=== PATIENT | male | born 1955 | race Caucasian/White ===

== ENCOUNTER 2020-05-24 18:34 | Emergency (ER) | payer BC, OTHER ==
[~2020-05-24] VITALS: Ht 180.3 cm; Wt 120.2 kg
[2020-05-24] MEDS ORDERED: HYDROCODONE/APAP 10MG-325MG TAB PO ONE (18:45)
[2020-05-24 21:19] VITALS: BP 154/86
== END 2020-05-24 20:42 | disposition home or self-care (01) ==
LOC: ER 18:51
DX: S46.911A Strain of unspecified muscle, fascia and tendon at shoulder and upper arm level, right arm, initial encounter (principal); I10 Essential (primary) hypertension; F17.200 Nicotine dependence, unspecified, uncomplicated; X58.XXXA Exposure to other specified factors, initial encounter; Y93.89 Activity, other specified; Y99.8 Other external cause status
CPT/HCPCS: 99283